=== PATIENT | male | born 1995 | race Caucasian/White ===

== ENCOUNTER 2016-10-22 16:59 | Emergency (ER) | payer BC ==
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
[2016-10-22] MEDS ORDERED: MOTRIN 600 MG PO ONE (17:40)
[2016-10-22] MEDS ORDERED: MOTRIN 600 MG ONE (17:47)
[2016-10-22 18:04] VITALS: BP 124/70; PULSE 73; O2SAT 100
--- NOTE | 2016-10-23 08:34 | XRAY ---
Indication: Pain and dizziness following head injury 2 days ago. Multiple contiguous axial images obtained through the head without contrast. Comparison: September 13, 2010. Again normal appearing brain parenchyma, ventricles, and bony calvarium. Visualized paranasal sinuses and mastoid air cells are pneumatized and clear. Impression: Stable normal CT head without contrast exam. CT DI 51.26
== END 2016-10-22 18:03 | disposition home or self-care (01) ==
LOC: ED 16:59
DX: H10.9 Unspecified conjunctivitis (principal); J02.9 Acute pharyngitis, unspecified; R50.9 Fever, unspecified
CPT/HCPCS: 70450; 99283; 99284; A9270-GY

== ENCOUNTER 2016-10-29 16:52 | Emergency (ER) | payer BC ==
--- NOTE | 2016-10-29 17:09 | ERPHSYRPT ---
- History of Present Illness Time Seen by Provider: 10/29/16 17:02 Source: patient Exam Limitations: no limitations Patient Subjective Stated Complaint: PT REPORTS PROBLEMS WITH HIS LEFT WISDOM TOOTH-STATES THAT HE HAS A DENTIST KELLIE 3 WKS-DENTIST INSTRUCTED PT TO TAKE IBUPROFEN-PT STATES HE NEEDS RX FOR PAIN MEDS TO GET HIM THROUGH UNTIL HIS DENTIST KELLIE-DENIES FEVER Triage Nursing Assessment: PT PINK WARM ET [id number] SWELLING OR REDNESS NOTED-RESP EASY ET NONLABORED AT THIS TIME-PT SPEAKING IN COMPLETE SENTECES WITH EASE Physician History: The patient is a 21-year-old male with his girlfriend complaining of a problem with his left lower wisdom tooth for a few days. He says pieces of the tooth have broken off. The area is swollen and tender. He called his dentist but the dentist can't see him for 3 weeks. His past medical history is significant for headaches. Timing/Duration: gradual onset, days Severity: moderate ENT Location: dental Prearrival Treatment: over the counter meds Modifying Factors: Improves With: nothing Associated Symptoms: tooth pain Allergies/Adverse Reactions: No Known Drug Allergies Allergy (Verified 10/29/16 17:01) Hx Tetanus, Diphtheria Vaccination/Date Given: Yes Hx Influenza Vaccination/Date Given: No Hx Pneumococcal Vaccination/Date Given: No Immunizations Up to Date: Yes - Review of Systems Constitutional: No Fever, No Chills Eyes: No Symptoms Ears, Nose, & Throat: Other (dental pain) Respiratory: No Cough, No Dyspnea Cardiac: No Chest Pain, No Edema, No Syncope Abdominal/Gastrointestinal: No Abdominal Pain, No Nausea, No Vomiting, No Diarrhea Genitourinary Symptoms: No Dysuria Musculoskeletal: No Back Pain, No Neck Pain Skin: No Rash Neurological: No Dizziness, No Focal Weakness, No Sensory Changes Psychological: No Symptoms Endocrine: No Symptoms Hematologic/Lymphatic: No Symptoms Immunological/Allergic: No Symptoms All Other Systems: Reviewed and Negative - Past Medical History Pertinent Past Medical History: No - Past Surgical History Past Surgical History: No Other Surgical History: MYRIGNOTOMY - Social History Smoking Status: Never smoker Exposure to second hand smoke: No Drug Use: none Patient Lives Alone: No - Nursing Vital Signs Nursing Vital Signs: Initial Vital Signs Temperature 97.6 F 10/29/16 16:57 Pulse Rate 75 10/29/16 16:57 Respiratory Rate 20 10/29/16 16:57 Blood Pressure 128/73 10/29/16 16:57 O2 Sat by Pulse Oximetry 97 10/29/16 16:57 Pain Scale Pain Intensity 9 - Physical Exam General Appearance: no apparent distress, alert Eye Exam: bilateral eye: PERRL, EOMI Ear Exam: bilateral ear: auricle normal Nasal Exam: normal inspection Throat Exam: mandibular swelling (Examination of the oral cavity shows mild to moderate swelling of the gums surrounding the left lower wisdom tooth. The area is also slightly erythematous. The wisdom tooth itself appears to have fractured.) Neck Exam: supple Cardiovascular/Respiratory Exam: normal breath sounds, regular rate/rhythm Abdominal Exam: non-tender, soft Neurologic Exam: alert, oriented x 3, sensation nml, No motor deficits Skin Exam: normal color, warm, dry SpO2 Interpretation: normal SpO2: 97 Oxygen Delivery: Room Air - Progress Progress: unchanged (The patient was offered a Toradol IM injection. The patient declined.) Counseled pt/family regarding: diagnosis, need for follow-up - Departure Time of Disposition: 17:14 Departure Disposition: Home Clinical Impression: Pain, dental Condition: Stable Critical Care Time: No Additional Instructions: You have tender and swollen gum tissue around the fractured left lower wisdom tooth. Take penicillin VK 500 mg 4 times a day for 10 days. Take Lodine 400 mg every 8 hours as needed for pain. Follow-up with your dentist as scheduled. Prescriptions: Etodolac 400 mg [Lodine 400 mg] 400 mg PO Q8H PRN PRN #20 tablet PRN Reason: Pain Penicillin V Potassium 500 mg PO QID #40 tablet
[2016-10-29 17:22] VITALS: BP 128/66; PULSE 71; O2SAT 99
== END 2016-10-29 17:21 | disposition home or self-care (01) ==
LOC: ED 16:52
DX: K08.89 Other specified disorders of teeth and supporting structures (principal)
CPT/HCPCS: 99281

== ENCOUNTER 2018-06-16 20:12 | Emergency (ER) | payer BC | END 2018-06-16 20:55 | disposition left against medical advice (07) | LOC: ED 20:12 | DX: Z53.9 Procedure and treatment not carried out, unspecified reason (principal) ==